=== PATIENT | female | born 1960 | race Caucasian/White ===

== ENCOUNTER 2017-10-10 17:09 | Emergency (ER) | payer BC ==
[~2017-10-10] VITALS: Ht 160 cm; Wt 72.6 kg
[~2017-10-10 17:09] MED LIST: AMOX1TAB15 PO; SULF1TAB48 PO
[2017-10-10] MEDS ORDERED: ATENOLO PO (17:24)
[2017-10-10 18:18] LABS: BASOPHILS # (AUTO) 0.1 K/uL (0.0-8.0); BASOPHILS % (AUTO) 0.7 % (0.0-2.0); EOSINOPHILS # (AUTO) 0.1 K/uL (0.0-0.7); EOSINOPHILS % (AUTO) 1.1 % (0.0-7.0); HEMATOCRIT 38.6 % (31.2-41.9); HEMOGLOBIN 13.3 g/dL (10.9-14.3); LYMPHOCYTES # (AUTO) 2.1 K/uL (20.0-40.0); LYMPHOCYTES % (AUTO) 22.6 % (20.5-51.5); MEAN CORPUSCULAR HGB CONC 35 g/dL (32.3-35.6); MONOCYTES # (AUTO) 0.4 K/uL (2.0-10.0); MONOCYTES % (AUTO) 4.5 % (0.0-11.0); NEUTROPHILS # (AUTO) 6.6 K/uL (1.8-8.9); NEUTROPHILS % (AUTO) 71.1 % (38.5-71.5); PLATELET COUNT (AUTO) 330 K/uL (179-408); RED BLOOD CELL COUNT(AUTO) 4.59 MIL/uL (3.63-4.92); WHITE BLOOD COUNT (AUTO) 9.3 K/uL (3.8-11.8)
[2017-10-10 18:29] LABS: CREATININE 0.7 mg/dL (0.6-1.3); POTASSIUM 3.2 mmol/L (3.5-5.1)
[2017-10-10 18:40] LABS: TOTAL PROTEIN, SERUM 7.8 g/dL (6.4-8.2)
[2017-10-10 18:53] LABS: BILIRUBIN,TOTAL 0.7 mg/dL (0.2-1.0)
[2017-10-10] MEDS ORDERED: IBUPROFEN 800 MG TABLET PO ONE (19:15)
[2017-10-10 19:18] VITALS: BP 121/61
--- NOTE | 2017-10-10 19:18 | NUR ---
Patient discharged to home in stable conditon. Written and verbal after care instructions given. Patient verbalizes understanding of instructions.pt walks in steady gait. pt accompanied by edgar ruiz
[2017-10-10] MEDS ORDERED: IBUPROFEN 800 MG TABLET ONE (19:28)
== END 2017-10-10 19:21 | disposition home or self-care (01) ==
LOC: ER 17:09
DX: R07.89 Other chest pain (principal); I10 Essential (primary) hypertension; V49.9XXA Car occupant (driver) (passenger) injured in unspecified traffic accident, initial encounter; Y93.89 Activity, other specified; Y92.410 Unspecified street and highway as the place of occurrence of the external cause; Y99.8 Other external cause status
CPT/HCPCS: 36415; 70030-TC; 71045; 85025; 93005; A4663